=== PATIENT | female | born 1980 | race Caucasian/White ===

== ENCOUNTER 2017-06-25 01:13 | Emergency (ER) | payer MEDICARE, MEDICAID ==
[~2017-06-25] VITALS: Ht 165.1 cm; Wt 100.0 kg
[~2017-06-25 01:13] MED LIST: ARIP5TAB4 PO; DOXE10CA2 PO; FLUO20CA39 PO; FLUT16SP10; IBUP-1984 PO; PANT20TA3 PO
[2017-06-25 01:41] LABS: CLARITY,URINE CLEAR (Clear); COLOR,URINE YELLOW (Yellow); GLUCOSE, URINE NEGATIVE (Neg); KETONES,URINE NEGATIVE (Neg); LEUKOCYTE ESTERASE ,URINE NEGATIVE (Neg); NITRITES, URINE NEGATIVE (Neg); OCCULT BLOOD,URINE NEGATIVE (Neg); PH,URINE 6.5 (4.8-8.0); PROTEIN,URINE NEGATIVE (Neg); URINE HCG NEGATIVE (NEG); UROBILINOGEN,URINE 0.2 E.U/dL (0.2-1.0)
[2017-06-25 01:42] LABS: UA COLLECTION TYPE FOLEY CATH
[2017-06-25] MEDS ORDERED: normal saline 1000ML IV soln IVB ONE (02:00)
[2017-06-25] MEDS ORDERED: ketorolac trometh. 30mg/ml inj. IV ONE (02:10)
[2017-06-25 02:11] LABS: BASOPHILS # (AUTO) 0.1 X10'3 (0-0.2); BASOPHILS % (AUTO) 0.9 % (0-1); EOSINOPHILS # (AUTO) 0.3 X10'3 (0-0.9); EOSINOPHILS % (AUTO) 3.7 % (0-6); HEMATOCRIT 39.8 % (35.0-45.0); HEMOGLOBIN 13.4 g/dl (12.0-16.0); LYMPHOCYTES # (AUTO) 2.8 X10'3 (1.1-4.8); LYMPHOCYTES % (AUTO) 36.1 % (21-51); MEAN CORPUSCULAR HEMOGLOBIN 28.6 PG (27.0-31.0); MEAN CORPUSCULAR HGB CONC 33.8 % (33.0-36.5); MEAN CORPUSCULAR VOLUME 84.7 FL (78-98); MEAN PLATELET VOLUME 8.4 FL (7.4-10.4); MONOCYTES # (AUTO) 0.7 X10'3 (0-0.9); MONOCYTES % (AUTO) 9.6 % (2-12); NEUTROPHILS # (AUTO) 3.8 X10'3 (1.8-7.7); NEUTROPHILS % (AUTO) 49.7 % (42-75); PLATELET COUNT 264 X10'3 (140-440); RED CELL DISTRIBUTION WIDTH 13.7 % (11.5-14.5); WHITE BLOOD COUNT 7.7 X10'3 (4.5-11.0)
[2017-06-25] MEDS ORDERED: acetaminophen 325mg tablet PO ONE (02:15)
[2017-06-25 02:19] LABS: ALBUMIN 3.6 G/DL (3.4-5.0); ANION GAP 7 (8-16); CALCIUM 8.9 MG/DL (8.5-10.1); CHLORIDE 104 MMOL/L (99-107); CREATININE 0.92 MG/DL (0.40-0.90); GLUCOSE 101 MG/DL (70-104); POTASSIUM 3.6 MMOL/L (3.5-5.1); SODIUM 141 MMOL/L (135-145); TOTAL CARBON DIOXIDE 30.3 MMOL/L (24-32); eGFR 68 ML/MIN
[2017-06-25 02:40] LABS: BLOOD UREA NITROGEN 15 MG/DL (7-18); BUN/CREATININE RATIO 16.3 (6.6-38.0)
[2017-06-25] MEDS ORDERED: iohexol 300mg/ml 100ml inj. ONE (03:35)
[2017-06-25 05:31] VITALS: BP 120/72
== END 2017-06-25 05:33 | disposition home or self-care (01) ==
LOC: ER 01:14
DX: K59.00 Constipation, unspecified (principal); R33.9 Retention of urine, unspecified; N18.9 Chronic kidney disease, unspecified; K21.9 Gastro-esophageal reflux disease without esophagitis; Z88.6 Allergy status to analgesic agent; Z88.1 Allergy status to other antibiotic agents; Z88.0 Allergy status to penicillin; Z88.8 Allergy status to other drugs, medicaments and biological substances
CPT/HCPCS: 36415; 51702; 74177; 76856; 80048; 81003; 81025; 85025; 96360; 99285; A4315; J7030; Q9967; A4353

== ENCOUNTER 2017-08-12 18:27 | Emergency (ER) | payer MEDICARE, MEDICAID ==
[~2017-08-12] VITALS: Ht 165.1 cm; Wt 104.5 kg
[~2017-08-12 18:27] MED LIST changes: -IBUP-1984 PO
[2017-08-12] MEDS ORDERED: LORazepam 2 mg/ml vial IV ONE (21:10)
[2017-08-12] MEDS ORDERED: iohexol 300mg/ml 100ml inj. ONE (21:18)
[2017-08-12 22:09] LABS: BASOPHILS # (AUTO) 0.1 X10'3 (0-0.2); BASOPHILS % (AUTO) 0.5 % (0-1); EOSINOPHILS # (AUTO) 0.4 X10'3 (0-0.9); EOSINOPHILS % (AUTO) 3.4 % (0-6); HEMOGLOBIN 12.6 g/dl (12.0-16.0); LYMPHOCYTES % (AUTO) 26.6 % (21-51); MEAN CORPUSCULAR VOLUME 85.6 FL (78-98); MEAN PLATELET VOLUME 8.1 FL (7.4-10.4); MONOCYTES # (AUTO) 0.8 X10'3 (0-0.9); MONOCYTES % (AUTO) 7.4 % (2-12); NEUTROPHILS % (AUTO) 62.1 % (42-75); PLATELET COUNT 278 X10'3 (140-440); RED BLOOD COUNT 4.21 X10'6 (4.20-5.60); RED CELL DISTRIBUTION WIDTH 14.3 % (11.5-14.5); WHITE BLOOD COUNT 11.2 X10'3 (4.5-11.0)
[2017-08-12] MEDS ORDERED: AZIT-63 PO (22:27)
[2017-08-12] MEDS ORDERED: DIAZ5TAB PO (22:27)
[2017-08-12 22:35] VITALS: BP 143/85
[2017-08-12 22:37] LABS: ALANINE AMINOTRANSFERASE 37 U/L (12-78); ALBUMIN 3.4 G/DL (3.4-5.0); ALBUMIN/GLOBULIN RATIO 0.9 (1.1-1.5); ALKALINE PHOSPHATASE 69 IU/L (46-116); ANION GAP 9 (8-16); ASPARTATE AMINO TRANSFERASE 24 U/L (10-37); BILIRUBIN,TOTAL 0.2 MG/DL (0.1-1.0); BLOOD UREA NITROGEN 14 MG/DL (7-18); BUN/CREATININE RATIO 16.5 (6.6-38.0); CALCIUM 8.4 MG/DL (8.5-10.1); CHLORIDE 103 MMOL/L (99-107); CREATININE 0.85 MG/DL (0.40-0.90); GLUCOSE 90 MG/DL (70-104); SODIUM 139 MMOL/L (135-145); TOTAL CARBON DIOXIDE 26.6 MMOL/L (24-32); TOTAL PROTEIN 7.1 G/DL (6.4-8.2); eGFR 75 ML/MIN
[2017-08-12 22:45] LABS: POTASSIUM 3.7 MMOL/L (3.5-5.1)
== END 2017-08-12 22:37 | disposition home or self-care (01) ==
LOC: ER 18:28
DX: J32.9 Chronic sinusitis, unspecified (principal); F41.9 Anxiety disorder, unspecified; R42 Dizziness and giddiness; K21.9 Gastro-esophageal reflux disease without esophagitis; Z98.890 Other specified postprocedural states; Z88.0 Allergy status to penicillin; Z88.2 Allergy status to sulfonamides; Z88.5 Allergy status to narcotic agent; Z88.8 Allergy status to other drugs, medicaments and biological substances; Z79.899 Other long term (current) drug therapy
CPT/HCPCS: 36415; 70450; 70491; 80053; 85025; 96374; 99285; J2060; J7030; Q9967

== ENCOUNTER 2017-08-19 17:30 | Emergency (ER) | payer MEDICARE, MEDICAID ==
[~2017-08-19] VITALS: Ht 165.1 cm; Wt 107.1 kg
[~2017-08-19 17:30] MED LIST changes: +AZIT-63 PO; +DIAZ5TAB PO
[2017-08-19] MEDS ORDERED: HYDR-3965 PO (20:09)
[2017-08-19] MEDS ORDERED: MECL12.584 PO (20:09)
[2017-08-19] MEDS ORDERED: ONDA8TAB9 PO (20:09)
[2017-08-19] MEDS ORDERED: acetaminophen 325mg tablet PO ONE (20:10)
[2017-08-19 20:24] VITALS: BP 134/76
== END 2017-08-19 20:36 | disposition home or self-care (01) ==
LOC: ER 17:32
DX: J32.9 Chronic sinusitis, unspecified (principal); H53.9 Unspecified visual disturbance; K21.9 Gastro-esophageal reflux disease without esophagitis; Z98.890 Other specified postprocedural states; Z88.0 Allergy status to penicillin; Z88.2 Allergy status to sulfonamides; Z88.8 Allergy status to other drugs, medicaments and biological substances; Z79.899 Other long term (current) drug therapy
CPT/HCPCS: 99283

== ENCOUNTER 2017-09-02 19:14 | Emergency (ER) | payer MEDICARE, MEDICAID ==
[~2017-09-02] VITALS: Ht 165.1 cm; Wt 105.0 kg
[~2017-09-02 19:14] MED LIST changes: +HYDR-3965 PO; +MECL12.584 PO; +ONDA8TAB9 PO
[2017-09-02 19:32] VITALS: BP 127/81
[2017-09-02] MEDS ORDERED: HYDR-565 PO (19:35)
[2017-09-02] MEDS ORDERED: CLIN-80 PO (19:35)
== END 2017-09-02 19:55 | disposition home or self-care (01) ==
LOC: ER 19:15
DX: K08.89 Other specified disorders of teeth and supporting structures (principal); K21.9 Gastro-esophageal reflux disease without esophagitis; Z98.890 Other specified postprocedural states; Z88.0 Allergy status to penicillin; Z88.2 Allergy status to sulfonamides; Z79.899 Other long term (current) drug therapy
CPT/HCPCS: 99283

== ENCOUNTER 2017-10-19 20:44 | Emergency (ER) | payer MEDICARE, MEDICAID ==
[~2017-10-19] VITALS: Ht 165.1 cm; Wt 106.4 kg
[~2017-10-19 20:44] MED LIST changes: -AZIT-63 PO; +CLIN300C85 PO; -HYDR-3965 PO; +HYDR-565 PO
[2017-10-19] MEDS ORDERED: proCHLORperazine 10 MG/2 ml inj IM ONE (21:20)
[2017-10-19] MEDS ORDERED: PHE25R PR (21:49)
== END 2017-10-19 21:58 | disposition home or self-care (01) ==
LOC: ER 20:45
DX: K08.89 Other specified disorders of teeth and supporting structures (principal); K21.9 Gastro-esophageal reflux disease without esophagitis; R11.0 Nausea; Z98.890 Other specified postprocedural states; Z88.0 Allergy status to penicillin; Z88.1 Allergy status to other antibiotic agents; Z88.2 Allergy status to sulfonamides; Z88.8 Allergy status to other drugs, medicaments and biological substances; Z88.5 Allergy status to narcotic agent; Z79.2 Long term (current) use of antibiotics; Z79.899 Other long term (current) drug therapy
CPT/HCPCS: 96372; 99283; J0780

== ENCOUNTER 2018-03-06 14:44 | Emergency (ER) | payer MEDICARE, MEDICAID ==
[~2018-03-06] VITALS: Ht 165.1 cm; Wt 106.0 kg
[~2018-03-06 14:44] MED LIST changes: -HYDR-565 PO; +PHE25R PR
[2018-03-06] MEDS ORDERED: ondansetron/PF 4mg/2ml inj IV ONE (15:25)
[2018-03-06] MEDS ORDERED: normal saline 1000ML IV soln IVB ONE (15:25)
[2018-03-06] MEDS: fentaNYL/PF 50MCG/1 ML 2ML syringe IV ONE ×2 (15:56→16:05)
[2018-03-06 16:01] VITALS: BP 142/91
[2018-03-06 16:10] LABS: BASOPHILS # (AUTO) 0.1 X10'3 (0-0.2); BASOPHILS % (AUTO) 0.5 % (0-1); EOSINOPHILS # (AUTO) 0.3 X10'3 (0-0.9); EOSINOPHILS % (AUTO) 3.5 % (0-6); HEMATOCRIT 38.8 % (35.0-45.0); HEMOGLOBIN 12.9 g/dl (12.0-16.0); LYMPHOCYTES # (AUTO) 2.9 X10'3 (1.1-4.8); LYMPHOCYTES % (AUTO) 30.9 % (21-51); MEAN CORPUSCULAR HEMOGLOBIN 29.1 PG (27.0-31.0); MEAN CORPUSCULAR HGB CONC 33.2 % (33.0-36.5); MEAN CORPUSCULAR VOLUME 87.8 FL (78-98); MONOCYTES # (AUTO) 0.7 X10'3 (0-0.9); NEUTROPHILS # (AUTO) 5.3 X10'3 (1.8-7.7); NEUTROPHILS % (AUTO) 57.1 % (42-75); PLATELET COUNT 346 X10'3 (140-440); RED BLOOD COUNT 4.42 X10'6 (4.20-5.60); RED CELL DISTRIBUTION WIDTH 13.3 % (11.5-14.5); WHITE BLOOD COUNT 9.3 X10'3 (4.5-11.0)
[2018-03-06 16:16] LABS: CLARITY,URINE CLEAR (Clear); COLOR,URINE YELLOW (Yellow); GLUCOSE, URINE NEGATIVE (Neg); KETONES,URINE TRACE mg/dl (Neg); LEUKOCYTE ESTERASE ,URINE NEGATIVE (Neg); NITRITES, URINE NEGATIVE (Neg); OCCULT BLOOD,URINE NEGATIVE (Neg); PH,URINE 6.5 (4.8-8.0); PROTEIN,URINE NEGATIVE (Neg); UA COLLECTION TYPE CLN CATCH MIDSTREAM; UROBILINOGEN,URINE 0.2 E.U/dL (0.2-1.0)
[2018-03-06 16:25] LABS: GLUCOSE 88 MG/DL (70-104)
[2018-03-06 16:26] LABS: ALANINE AMINOTRANSFERASE 47 U/L (12-78); ALBUMIN 3.2 G/DL (3.4-5.0); ALBUMIN/GLOBULIN RATIO 0.8 (1.1-1.5); ALKALINE PHOSPHATASE 77 IU/L (46-116); ANION GAP 8 (8-16); ASPARTATE AMINO TRANSFERASE 27 U/L (10-37); BILIRUBIN,TOTAL 0.1 MG/DL (0.1-1.0); BLOOD UREA NITROGEN 16 MG/DL (7-18); BUN/CREATININE RATIO 17.6 (6.6-38.0); CALCIUM 8.6 MG/DL (8.5-10.1); CHLORIDE 104 MMOL/L (99-107); CREATININE 0.91 MG/DL (0.40-0.90); POTASSIUM 3.5 MMOL/L (3.5-5.1); SODIUM 141 MMOL/L (135-145); TOTAL CARBON DIOXIDE 28.7 MMOL/L (24-32); TOTAL PROTEIN 7.1 G/DL (6.4-8.2); eGFR 69 ML/MIN
== END 2018-03-06 17:08 | disposition home or self-care (01) ==
LOC: ER 14:44
DX: R42 Dizziness and giddiness (principal); K21.9 Gastro-esophageal reflux disease without esophagitis; Z98.890 Other specified postprocedural states; Z90.89 Acquired absence of other organs; Z88.0 Allergy status to penicillin; Z88.1 Allergy status to other antibiotic agents; Z88.2 Allergy status to sulfonamides; Z88.6 Allergy status to analgesic agent; Z79.899 Other long term (current) drug therapy
CPT/HCPCS: 36415; 70450; 71045; 80053; 81003; 85025; 96361; 96374; 99285; J2405; J3010; J7030

== ENCOUNTER 2018-03-16 23:46 | Emergency (ER) | payer MEDICARE, MEDICAID ==
[~2018-03-16] VITALS: Ht 165.1 cm; Wt 106.8 kg
[2018-03-17] MEDS ORDERED: ACET1TAB12 PO (00:11)
[2018-03-17] MEDS ORDERED: ONDA4TAB9 SL (00:11)
[2018-03-17] MEDS ORDERED: HYDROmorphone 1 mg/ml syringe IM ONE (00:15)
[2018-03-17] MEDS ORDERED: ondansetron 4mg rapidly disintigrating tab PO ONE (00:15)
[2018-03-17 00:31] VITALS: BP 169/105
== END 2018-03-17 00:35 | disposition home or self-care (01) ==
LOC: ER 23:47
DX: J01.90 Acute sinusitis, unspecified (principal); K21.9 Gastro-esophageal reflux disease without esophagitis; Z88.0 Allergy status to penicillin; Z88.1 Allergy status to other antibiotic agents; Z88.2 Allergy status to sulfonamides; Z88.6 Allergy status to analgesic agent; Z79.899 Other long term (current) drug therapy; Z98.890 Other specified postprocedural states; Z90.89 Acquired absence of other organs
CPT/HCPCS: 96372; 99283; J1170

== ENCOUNTER → 2018-03-29 | Emergency (ER) | payer MEDICARE, MEDICAID ==
[~2018-03-29] VITALS: Ht 165.1 cm; Wt 105.0 kg
[~2018-03-29] MED LIST changes: +ACET1TAB12 PO; +ONDA4TAB6 PO
[2018-03-29 16:51] VITALS: BP 153/89
== END | disposition home or self-care (01) ==
LOC: ER 16:42
DX: R51 Headache (principal); K21.9 Gastro-esophageal reflux disease without esophagitis; Z98.890 Other specified postprocedural states; Z88.0 Allergy status to penicillin; Z88.2 Allergy status to sulfonamides; Z88.1 Allergy status to other antibiotic agents; Z88.5 Allergy status to narcotic agent; Z88.8 Allergy status to other drugs, medicaments and biological substances; Z79.2 Long term (current) use of antibiotics; Z79.899 Other long term (current) drug therapy
CPT/HCPCS: 99284

== ENCOUNTER 2018-05-11 21:54 | Emergency (ER) | payer MEDICARE, MEDICAID ==
[~2018-05-11] VITALS: Ht 165.1 cm; Wt 92.6 kg
[2018-05-11] MEDS ORDERED: HYDROcodone/acetaminophen 10/325mg tab PO ONE (22:15)
[2018-05-11] MEDS ORDERED: MECL-111 PO (22:15)
[2018-05-11] MEDS ORDERED: ketorolac trometh. 30mg/ml inj. IV ONE (22:15)
[2018-05-11] MEDS ORDERED: meclizine 12.5mg tablet PO ONE (22:15)
[2018-05-11] MEDS ORDERED: HYDR-3965 PO (22:15)
[2018-05-11] MEDS ORDERED: ondansetron 4mg rapidly disintigrating tab PO ONE (22:20)
[2018-05-11 22:50] VITALS: BP 166/111
== END 2018-05-11 22:52 | disposition home or self-care (01) ==
LOC: ER 21:55
DX: R51 Headache (principal); R11.0 Nausea; K21.9 Gastro-esophageal reflux disease without esophagitis; Z98.890 Other specified postprocedural states; Z88.0 Allergy status to penicillin; Z88.2 Allergy status to sulfonamides; Z88.1 Allergy status to other antibiotic agents; Z88.5 Allergy status to narcotic agent; Z88.8 Allergy status to other drugs, medicaments and biological substances; Z79.2 Long term (current) use of antibiotics; Z79.899 Other long term (current) drug therapy
CPT/HCPCS: 99284; J8597

== ENCOUNTER 2018-05-30 15:58 | Emergency (ER) | payer MEDICARE, MEDICAID ==
[~2018-05-30] VITALS: Ht 165.1 cm; Wt 105.2 kg
[~2018-05-30 15:58] MED LIST changes: +HYDR-3965 PO; +MECL-111 PO
[2018-05-30] MEDS ORDERED: methylPREDNISolone sod succ 125mg/2ml vial IV ONE (17:20)
[2018-05-30 18:06] LABS: ALANINE AMINOTRANSFERASE 28 U/L (12-78); ALBUMIN 3.2 G/DL (3.4-5.0); ALBUMIN/GLOBULIN RATIO 0.8 (1.1-1.5); ALKALINE PHOSPHATASE 77 IU/L (46-116); ANION GAP 9 (8-16); ASPARTATE AMINO TRANSFERASE 19 U/L (10-37); BILIRUBIN,TOTAL 0.3 MG/DL (0.1-1.0); BLOOD UREA NITROGEN 13 MG/DL (7-18); BUN/CREATININE RATIO 17.3 (6.6-38.0); CALCIUM 8.4 MG/DL (8.5-10.1); CHLORIDE 102 MMOL/L (99-107); CREATININE 0.75 MG/DL (0.40-0.90); GLUCOSE 101 MG/DL (70-104); POTASSIUM 3.8 MMOL/L (3.5-5.1); SODIUM 139 MMOL/L (135-145); TOTAL CARBON DIOXIDE 28.4 MMOL/L (24-32); TOTAL PROTEIN 7.4 G/DL (6.4-8.2); eGFR 86 ML/MIN
[2018-05-30 18:09] LABS: BASOPHILS % (AUTO) 0.3 % (0-1); EOSINOPHILS # (AUTO) 0.2 X10'3 (0-0.9); EOSINOPHILS % (AUTO) 2.3 % (0-6); HEMATOCRIT 39.4 % (35.0-45.0); HEMOGLOBIN 13.2 g/dl (12.0-16.0); LYMPHOCYTES # (AUTO) 2.3 X10'3 (1.1-4.8); LYMPHOCYTES % (AUTO) 24.8 % (21-51); MEAN CORPUSCULAR HEMOGLOBIN 29.3 PG (27.0-31.0); MEAN CORPUSCULAR HGB CONC 33.5 % (33.0-36.5); MEAN CORPUSCULAR VOLUME 87.4 FL (78-98); MEAN PLATELET VOLUME 8.4 FL (7.4-10.4); MONOCYTES # (AUTO) 0.6 X10'3 (0-0.9); MONOCYTES % (AUTO) 6.4 % (2-12); NEUTROPHILS # (AUTO) 6.2 X10'3 (1.8-7.7); NEUTROPHILS % (AUTO) 66.2 % (42-75); PLATELET COUNT 296 X10'3 (140-440); RED CELL DISTRIBUTION WIDTH 14.7 % (11.5-14.5); WHITE BLOOD COUNT 9.4 X10'3 (4.5-11.0)
[2018-05-30 18:19] LABS: D-DIMER 0.32 MG/L FEU (0-0.50)
[2018-05-30] MEDS ORDERED: LORazepam 0.5 MG tablet PO PRN (18:55)
[2018-05-30] MEDS ORDERED: LORA0.5T PO (19:39)
[2018-05-30 19:48] VITALS: BP 154/90
== END 2018-05-30 19:59 | disposition home or self-care (01) ==
LOC: ER 15:59
DX: R06.02 Shortness of breath (principal); F41.9 Anxiety disorder, unspecified; K21.9 Gastro-esophageal reflux disease without esophagitis; Z98.890 Other specified postprocedural states; Z90.89 Acquired absence of other organs; Z88.0 Allergy status to penicillin; Z88.1 Allergy status to other antibiotic agents; Z88.5 Allergy status to narcotic agent; Z88.6 Allergy status to analgesic agent; Z79.899 Other long term (current) drug therapy
CPT/HCPCS: 36415; 71045; 80053; 84439; 84443; 85025; 85379; 93005; 96374; 99284; J2930

== ENCOUNTER 2018-06-24 13:44 | Outpatient (CLI) | payer MEDICARE, MEDICAID ==
[~2018-06-24 13:44] MED LIST changes: -HYDR-3965 PO
[2018-06-24] MEDS ORDERED: SIMETHICONE/SOD BICARB/CIT AC PACKET PO ONE (14:58)
== END 2018-06-24 23:59 | disposition home or self-care (01) ==
LOC: RAD 13:44
PROVIDERS: ATTEND Otolaryngology
DX: R13.14 Dysphagia, pharyngoesophageal phase (principal); K21.9 Gastro-esophageal reflux disease without esophagitis; Z88.0 Allergy status to penicillin; Z88.2 Allergy status to sulfonamides; Z88.5 Allergy status to narcotic agent
CPT/HCPCS: 74220; 74230

== ENCOUNTER 2019-03-15 16:23 | Emergency (ER) | payer MEDICAID ==
[~2019-03-15] VITALS: Ht 165.1 cm; Wt 110.0 kg
[~2019-03-15 16:23] MED LIST changes: +ARIP5TAB14 PO; -ARIP5TAB4 PO; +CLIN-90 PO; -CLIN300C85 PO; +LOPE2CAP PO; +LORA1TAB PO; +PREG150C PO
[2019-03-15 16:28] VITALS: BP 150/101
[2019-03-15] MEDS ORDERED: ALBU6.7H9 INH (17:07)
[2019-03-15] MEDS ORDERED: CEPH250T PO (17:07)
[2019-03-15] MEDS ORDERED: PRED20TA PO (17:07)
== END 2019-03-15 17:46 | disposition home or self-care (01) ==
LOC: MERGE 16:24 → ER 16:24
DX: J20.9 Acute bronchitis, unspecified (principal); F41.9 Anxiety disorder, unspecified; Z88.0 Allergy status to penicillin; Z88.2 Allergy status to sulfonamides; Z88.1 Allergy status to other antibiotic agents; Z88.5 Allergy status to narcotic agent; Z79.899 Other long term (current) drug therapy
CPT/HCPCS: 99283

== ENCOUNTER 2019-03-21 08:34 | Emergency (ER) | payer MEDICAID ==
[~2019-03-21] VITALS: Ht 165.1 cm; Wt 109.0 kg
[~2019-03-21 08:34] MED LIST changes: +ALBU6.7H9 INH; +CEPH250T PO; +PRED20TA PO
[2019-03-21] MEDS ORDERED: normal saline 1000ML IV soln IV ONE (08:45)
[2019-03-21] MEDS ORDERED: benzonatate 100mg capsule PO ONE (08:50)
[2019-03-21] MEDS ORDERED: acetaminophen 325mg tablet PO ONE ×2 (08:50)
[2019-03-21 09:26] LABS: CLARITY,URINE CLEAR (Clear); COLOR,URINE YELLOW (Yellow); GLUCOSE, URINE NEGATIVE (Neg); KETONES,URINE NEGATIVE (Neg); LEUKOCYTE ESTERASE ,URINE NEGATIVE (Neg); NITRITES, URINE NEGATIVE (Neg); OCCULT BLOOD,URINE NEGATIVE (Neg); PROTEIN,URINE NEGATIVE (Neg); UROBILINOGEN,URINE 0.2 E.U/dL (0.2-1.0)
[2019-03-21 09:28] LABS: UA COLLECTION TYPE CLN CATCH MIDSTREAM
[2019-03-21 09:30] LABS: URINE HCG NEGATIVE (NEG)
[2019-03-21 09:33] LABS: BASOPHILS # (AUTO) 0.1 X10'3 (0-0.2); BASOPHILS % (AUTO) 0.9 % (0-1); EOSINOPHILS # (AUTO) 0.2 X10'3 (0-0.9); HEMATOCRIT 39.3 % (35.0-45.0); HEMOGLOBIN 13.4 g/dl (12.0-16.0); LYMPHOCYTES # (AUTO) 2.8 X10'3 (1.1-4.8); LYMPHOCYTES % (AUTO) 33.4 % (21-51); MEAN CORPUSCULAR HEMOGLOBIN 29.4 PG (27.0-31.0); MEAN CORPUSCULAR HGB CONC 34.1 g/dL (33.0-36.5); MEAN CORPUSCULAR VOLUME 86.1 FL (78-98); MEAN PLATELET VOLUME 7.7 FL (7.4-10.4); MONOCYTES # (AUTO) 0.7 X10'3 (0-0.9); MONOCYTES % (AUTO) 8.2 % (2-12); NEUTROPHILS # (AUTO) 4.6 X10'3 (1.8-7.7); NEUTROPHILS % (AUTO) 55.5 % (42-75); PLATELET COUNT 311 X10'3 (140-440); RED BLOOD COUNT 4.56 X10'6 (4.20-5.60); RED CELL DISTRIBUTION WIDTH 14.2 % (11.5-14.5); WHITE BLOOD COUNT 8.3 X10'3 (4.5-11.0)
[2019-03-21 09:48] LABS: ALANINE AMINOTRANSFERASE 39 U/L (12-78); ALBUMIN 3.6 G/DL (3.4-5.0); ALKALINE PHOSPHATASE 79 IU/L (46-116); ANION GAP 10 (8-16); ASPARTATE AMINO TRANSFERASE 24 U/L (10-37); BILIRUBIN,TOTAL 0.3 MG/DL (0.1-1.0); BLOOD UREA NITROGEN 12 MG/DL (7-18); BUN/CREATININE RATIO 14.6 (6.6-38.0); CALCIUM 8.6 MG/DL (8.5-10.1); CHLORIDE 104 MMOL/L (99-107); CREATININE 0.82 MG/DL (0.40-0.90); GLUCOSE 95 MG/DL (70-104); POTASSIUM 3.3 MMOL/L (3.5-5.1); SODIUM 141 MMOL/L (135-145); TOTAL PROTEIN 7.3 G/DL (6.4-8.2); eGFR 77 ML/MIN
[2019-03-21] MEDS ORDERED: BENZ-38 PO (09:52)
[2019-03-21 10:36] VITALS: BP 137/87
== END 2019-03-21 10:39 | disposition home or self-care (01) ==
LOC: ER 08:35
DX: J06.9 Acute upper respiratory infection, unspecified (principal); K21.9 Gastro-esophageal reflux disease without esophagitis; Z98.890 Other specified postprocedural states; Z90.89 Acquired absence of other organs; Z88.0 Allergy status to penicillin; Z88.1 Allergy status to other antibiotic agents; Z88.2 Allergy status to sulfonamides; Z79.899 Other long term (current) drug therapy
CPT/HCPCS: 36415; 71046; 80053; 81003; 81025; 83605; 83735; 83880; 84145; 85025; 87040; 93005; 99284; J7030

== ENCOUNTER 2019-06-16 19:04 | Emergency (ER) | payer MEDICARE, MEDICAID ==
[~2019-06-16] VITALS: Ht 165.1 cm; Wt 109.1 kg
[~2019-06-16 19:04] MED LIST changes: -CEPH250T PO; -MECL-111 PO; +MECL-159 PO; +MECL-183 PO; -MECL12.584 PO; -PRED20TA PO
[2019-06-16] MEDS ORDERED: CLIN-142 PO (20:48)
[2019-06-16] MEDS ORDERED: HYDR-4383 PO (20:48)
[2019-06-16 20:52] VITALS: BP 150/88
== END 2019-06-16 21:06 | disposition home or self-care (01) ==
LOC: ER 19:05
DX: S02.5XXA Fracture of tooth (traumatic), initial encounter for closed fracture (principal); K21.9 Gastro-esophageal reflux disease without esophagitis; Z98.890 Other specified postprocedural states; Z90.89 Acquired absence of other organs; Z88.0 Allergy status to penicillin; Z88.1 Allergy status to other antibiotic agents; Z88.2 Allergy status to sulfonamides; Z88.5 Allergy status to narcotic agent; Z88.6 Allergy status to analgesic agent; X58.XXXA Exposure to other specified factors, initial encounter; Y93.89 Activity, other specified; Y92.89 Other specified places as the place of occurrence of the external cause; Y99.9 Unspecified external cause status
CPT/HCPCS: 99283

== ENCOUNTER 2020-01-06 21:04 | Emergency (ER) | payer MEDICARE, MEDICAID ==
[~2020-01-06] VITALS: Ht 165.1 cm; Wt 107.0 kg
[~2020-01-06 21:04] MED LIST changes: -CLIN-90 PO; +CLIN-97 PO; +HYDR-4383 PO
[2020-01-06] MEDS ORDERED: ondansetron/PF 4mg/2ml inj IV ONE (22:20)
[2020-01-06] MEDS ORDERED: famotidine/PF 10 mg/ml inj IV ONE (22:20)
[2020-01-06] MEDS ORDERED: fentaNYL/PF 50MCG/1 ML 2ML syringe IV ONE (22:20)
[2020-01-06] MEDS ORDERED: normal saline 1000ml 1,000 ML IV ONE (22:20)
[2020-01-06 22:26] LABS: BASOPHILS # (AUTO) 0.1 X10'3 (0-0.2); BASOPHILS % (AUTO) 0.8 % (0-1); EOSINOPHILS # (AUTO) 0.2 X10'3 (0-0.9); EOSINOPHILS % (AUTO) 1.9 % (0-6); HEMATOCRIT 40.2 % (35.0-45.0); HEMOGLOBIN 13.5 g/dl (12.0-16.0); LYMPHOCYTES # (AUTO) 3.3 X10'3 (1.1-4.8); LYMPHOCYTES % (AUTO) 28.9 % (21-51); MEAN CORPUSCULAR HEMOGLOBIN 29.8 PG (27.0-31.0); MEAN CORPUSCULAR HGB CONC 33.6 g/dL (33.0-36.5); MEAN CORPUSCULAR VOLUME 88.8 FL (78-98); MEAN PLATELET VOLUME 8.1 FL (7.4-10.4); MONOCYTES # (AUTO) 0.9 X10'3 (0-0.9); MONOCYTES % (AUTO) 8.2 % (2-12); NEUTROPHILS % (AUTO) 60.2 % (42-75); PLATELET COUNT 293 X10'3 (140-440); RED BLOOD COUNT 4.52 X10'6 (4.20-5.60); RED CELL DISTRIBUTION WIDTH 13.4 % (11.5-14.5); WHITE BLOOD COUNT 11.6 X10'3 (4.5-11.0)
[2020-01-06 22:35] LABS: ALANINE AMINOTRANSFERASE 26 U/L (12-78); ALBUMIN 3.5 G/DL (3.4-5.0); ALBUMIN/GLOBULIN RATIO 0.9 (1.1-1.5); ALKALINE PHOSPHATASE 73 IU/L (46-116); ANION GAP 9 (8-16); ASPARTATE AMINO TRANSFERASE 19 U/L (10-37); BILIRUBIN,TOTAL 0.4 MG/DL (0.1-1.0); BLOOD UREA NITROGEN 9 MG/DL (7-18); BUN/CREATININE RATIO 10.1 (6.6-38.0); CALCIUM 8.5 MG/DL (8.5-10.1); CHLORIDE 102 MMOL/L (99-107); CREATININE 0.89 MG/DL (0.40-0.90); GLUCOSE 84 MG/DL (70-104); LIPASE 108 U/L (73-393); POTASSIUM 3.7 MMOL/L (3.5-5.1); SODIUM 137 MMOL/L (135-145); TOTAL CARBON DIOXIDE 25.6 MMOL/L (24-32); TOTAL PROTEIN 7.4 G/DL (6.4-8.2); eGFR 70 ML/MIN
[2020-01-06] MEDS ORDERED: LIDOcaine Viscous 15ml cup MM ONE (23:05)
[2020-01-06] MEDS ORDERED: mag hydrox/Alum hydrox/simeth 30ml oral suspension PO ONE (23:05)
[2020-01-06 23:17] LABS: URINE HCG NEGATIVE (NEG)
[2020-01-06 23:18] LABS: CLARITY,URINE CLEAR (Clear); COLOR,URINE YELLOW (Yellow); GLUCOSE, URINE NEGATIVE (Neg); KETONES,URINE NEGATIVE (Neg); LEUKOCYTE ESTERASE ,URINE NEGATIVE (Neg); NITRITES, URINE NEGATIVE (Neg); OCCULT BLOOD,URINE NEGATIVE (Neg); PROTEIN,URINE NEGATIVE (Neg); UROBILINOGEN,URINE 0.2 E.U/dL (0.2-1.0)
[2020-01-06 23:25] LABS: UA COLLECTION TYPE CLN CATCH MIDSTREAM
[2020-01-06] MEDS ORDERED: FAMO-128 PO (23:42)
[2020-01-06 23:59] VITALS: BP 166/89
== END 2020-01-07 01:23 | disposition home or self-care (01) ==
LOC: ER 21:05
DX: K29.70 Gastritis, unspecified, without bleeding (principal); R10.11 Right upper quadrant pain; R11.2 Nausea with vomiting, unspecified; K21.9 Gastro-esophageal reflux disease without esophagitis; F41.9 Anxiety disorder, unspecified; Z90.89 Acquired absence of other organs; Z98.890 Other specified postprocedural states; Z88.0 Allergy status to penicillin; Z88.2 Allergy status to sulfonamides; Z79.2 Long term (current) use of antibiotics; Z88.8 Allergy status to other drugs, medicaments and biological substances; Z79.899 Other long term (current) drug therapy
CPT/HCPCS: 36415; 76700; 80053; 81003; 81025; 83690; 85025; 96361; 96374; 96375; 99284; J2405; J3010; J3490; J7030

== ENCOUNTER 2020-02-18 15:55 | Emergency (ER) | payer MEDICARE, MEDICAID ==
[~2020-02-18] VITALS: Ht 165.1 cm; Wt 106.8 kg
[~2020-02-18 15:55] MED LIST changes: +FAMO-128 PO; +PANT20TA18 PO; -PANT20TA3 PO
[2020-02-18] MEDS ORDERED: fentaNYL/PF 50MCG/1 ML 2ML syringe IV ONE (17:15)
[2020-02-18] MEDS ORDERED: ondansetron 4mg rapidly disintigrating tab PO ONE (17:15)
[2020-02-18] MEDS ORDERED: normal saline 1000ML IV soln IVB ONE (17:15)
[2020-02-18 18:01] LABS: BASOPHILS # (AUTO) 0.1 X10'3 (0-0.2); BASOPHILS % (AUTO) 0.8 % (0-1); EOSINOPHILS # (AUTO) 0.3 X10'3 (0-0.9); EOSINOPHILS % (AUTO) 2.5 % (0-6); HEMATOCRIT 40.9 % (35.0-45.0); HEMOGLOBIN 13.7 g/dl (12.0-16.0); LYMPHOCYTES # (AUTO) 2.6 X10'3 (1.1-4.8); LYMPHOCYTES % (AUTO) 24.7 % (21-51); MEAN CORPUSCULAR HEMOGLOBIN 29.4 PG (27.0-31.0); MEAN CORPUSCULAR HGB CONC 33.5 g/dL (33.0-36.5); MEAN CORPUSCULAR VOLUME 87.8 FL (78-98); MEAN PLATELET VOLUME 8.3 FL (7.4-10.4); MONOCYTES # (AUTO) 0.9 X10'3 (0-0.9); MONOCYTES % (AUTO) 8.5 % (2-12); NEUTROPHILS # (AUTO) 6.6 X10'3 (1.8-7.7); NEUTROPHILS % (AUTO) 63.5 % (42-75); PLATELET COUNT 329 X10'3 (140-440); RED BLOOD COUNT 4.65 X10'6 (4.20-5.60); RED CELL DISTRIBUTION WIDTH 13.5 % (11.5-14.5); WHITE BLOOD COUNT 10.4 X10'3 (4.5-11.0)
[2020-02-18 18:20] LABS: ALANINE AMINOTRANSFERASE 33 U/L (12-78); ALBUMIN 3.7 G/DL (3.4-5.0); ALBUMIN/GLOBULIN RATIO 0.9 (1.1-1.5); ALKALINE PHOSPHATASE 78 IU/L (46-116); ANION GAP 6 (8-16); ASPARTATE AMINO TRANSFERASE 19 U/L (10-37); BILIRUBIN,TOTAL 0.3 MG/DL (0.1-1.0); BLOOD UREA NITROGEN 13 MG/DL (7-18); BUN/CREATININE RATIO 15.7 (6.6-38.0); CALCIUM 8.8 MG/DL (8.5-10.1); CHLORIDE 105 MMOL/L (99-107); CREATININE 0.83 MG/DL (0.40-0.90); GLUCOSE 92 MG/DL (70-104); LIPASE 162 U/L (73-393); POTASSIUM 3.5 MMOL/L (3.5-5.1); SODIUM 141 MMOL/L (135-145); TOTAL PROTEIN 7.8 G/DL (6.4-8.2); eGFR 76 ML/MIN
[2020-02-18] MEDS ORDERED: iohexol 300mg/ml 100ml inj. ONE (18:21)
[2020-02-18] MEDS ORDERED: famotidine/PF 10 mg/ml inj IV ONE (19:30)
[2020-02-18] MEDS ORDERED: TRAM50TA2 PO (19:31)
[2020-02-18 19:54] VITALS: BP 158/100
== END 2020-02-18 19:57 | disposition home or self-care (01) ==
LOC: ER 15:56
DX: R10.13 Epigastric pain (principal); K21.9 Gastro-esophageal reflux disease without esophagitis; F41.9 Anxiety disorder, unspecified; Z90.89 Acquired absence of other organs; Z90.49 Acquired absence of other specified parts of digestive tract; Z98.890 Other specified postprocedural states; Z88.0 Allergy status to penicillin; Z88.2 Allergy status to sulfonamides; Z79.2 Long term (current) use of antibiotics; Z79.899 Other long term (current) drug therapy
CPT/HCPCS: 36415; 71045; 71260; 80053; 83690; 85025; 96361; 96374; 96375; 99285; J3010; J3490; J7030; Q9967

== ENCOUNTER 2020-11-14 06:07 | Day surgery (SDC) | payer BC, MEDICAID ==
[2020-11-08 15:22] LABS: BASOPHILS # (AUTO) 0.1 X10'3 (0-0.2); BASOPHILS % (AUTO) 0.4 % (0-1); EOSINOPHILS # (AUTO) 0.1 X10'3 (0-0.9); EOSINOPHILS % (AUTO) 0.8 % (0-6); LYMPHOCYTES # (AUTO) 3.6 X10'3 (1.1-4.8); LYMPHOCYTES % (AUTO) 22.6 % (21-51); MEAN CORPUSCULAR HEMOGLOBIN 29.1 PG (27.0-31.0); MEAN CORPUSCULAR HGB CONC 33.9 g/dL (33.0-36.5); MEAN CORPUSCULAR VOLUME 85.8 FL (78-98); MEAN PLATELET VOLUME 7.8 FL (7.4-10.4); MONOCYTES # (AUTO) 1.5 X10'3 (0-0.9); MONOCYTES % (AUTO) 9.6 % (2-12); NEUTROPHILS # (AUTO) 10.5 X10'3 (1.8-7.7); NEUTROPHILS % (AUTO) 66.6 % (42-75); PRE OP HEMATOCRIT 39.8 % (35.0-45.0); PRE OP HEMOGLOBIN 13.5 g/dL (12.0-16.0); PRE OP PLATELET COUNT 369 X10'3 (140-440); RED BLOOD COUNT 4.64 X10'6 (4.20-5.60); RED CELL DISTRIBUTION WIDTH 14.7 % (11.5-14.5)
[2020-11-08 15:29] LABS: PRE OP PROTIME 10.3 SECONDS (9.0-12.0)
[2020-11-08 15:31] LABS: ALBUMIN 3.5 G/DL (3.4-5.0); ALBUMIN/GLOBULIN RATIO 0.9 (1.1-1.5); ALKALINE PHOSPHATASE 73 IU/L (46-116); BLOOD UREA NITROGEN 17 MG/DL (7-18); CALCIUM 8.8 MG/DL (8.5-10.1); CHLORIDE 102 MMOL/L (99-107); PRE OP ALT 24 U/L (30-65); PRE OP ANION GAP 8 (8-16); PRE OP AST 16 U/L (10-37); PRE OP BILIRUB, TOTAL 0.3 MG/DL (0.0-1.0); PRE OP GLUCOSE 76 MG/DL (70-104); PRE OP POTASSIUM 3.6 MMOL/L (3.4-5.1); PRE OP SODIUM 140 MMOL/L (135-145); TOTAL CARBON DIOXIDE 29.9 MMOL/L (24-32); TOTAL PROTEIN 7.5 G/DL (6.4-8.2); eGFR 61 ML/MIN
[2020-11-08 15:35] LABS: HCG SERUM QL NEGATIVE
[2020-11-14] VITALS (10 sets, daily range): BP systolic 143–154; BP diastolic 78–95
[~2020-11-14] VITALS: Ht 165.1 cm; Wt 106.6 kg
[~2020-11-14 06:07] MED LIST changes: -ACET1TAB12 PO; -ALBU6.7H9 INH; -ARIP5TAB14 PO; +ATOR10TA70 PO; +AZEL137S4 BOTHNARES; +BREX2TAB PO; +CEPH250C PO; -CLIN-97 PO; +CLON0.1T2 PO; -DIAZ5TAB PO; +DOCUMENT DATE & TIME OF BETA-BLOCKER PO ONE; -DOXE10CA2 PO; +DOXE25CA3 PO; +DUPI300S; -FAMO-128 PO; -FLUO20CA39 PO; +FLUO40CA PO; -HYDR-4383 PO; +LEVO500T89 PO; -LOPE2CAP PO; -LORA1TAB PO; +LORA2TAB96; -MECL-159 PO; -MECL-183 PO; +OMEP-50 PO; -ONDA4TAB6 PO; +ONDA8TAB13 PO; -ONDA8TAB9 PO; -PHE25R PR; +POLY510P31 PO; +PRED10TA; +PROP20TA6 PO; +diazepam 5mg tablet PO ONE; +famotidine 20mg tablet PO ONE; +ringers solution, lacted 1,000 ML IV SCH
[2020-11-14] MEDS ORDERED: oxymetazoline 15 ML nasal spray NS ONE ×2 (06:15→06:58)
[2020-11-14] MEDS ORDERED: cocaine 4% topical solution 4ml bottle ONE (06:56)
[2020-11-14] MEDS ORDERED: LIDOcaine 1% 30ml preserv. free vial ONE (06:57)
[2020-11-14] MEDS ORDERED: methylPREDNISolone acetate 80mg/ml inj**IM only ONE (06:57)
[2020-11-14] MEDS ORDERED: bacitracin 15gm ointment TP ONE (06:57)
[2020-11-14] MEDS ORDERED: cefTAZidime 1gm inj ONE (06:58)
[2020-11-14] MEDS ORDERED: LIDOcaine 1% W/epiNEPHrine 1:100,000 20ml vial ONE (07:14)
[2020-11-14] MEDS: oxymetazoline 15 ML nasal spray NS ONE ×2 (07:26→09:08)
[2020-11-14] MEDS ORDERED: glycopyrrolate 0.2mg/ml inj ONE (07:53)
[2020-11-14] MEDS ORDERED: sevoflurane 250ml liquid IH ONE (07:53)
[2020-11-14] MEDS ORDERED: neostigmine methylsulfate 1 MG/ML 10ml vial ONE (07:53)
[2020-11-14] MEDS ORDERED: dexamethasone sod phosphate 10mg/ml inj ONE (07:53)
[2020-11-14] MEDS ORDERED: LIDOcaine 1% (10mg/ml) 2ml vial ONE (08:02)
[2020-11-14] MEDS ORDERED: midazolam 1 mg/ML 2ml injection ONE (08:08)
[2020-11-14] MEDS ORDERED: fentaNYL /PF 50mcg/ml 5ml ampule ONE (08:09)
[2020-11-14] MEDS ORDERED: propofol inj 20 ML IV ONE (08:22)
[2020-11-14] MEDS ORDERED: LIDOcaine 2% (20mg/ml) 5ml vial ONE (08:22)
[2020-11-14] MEDS ORDERED: metoprolol tartrate 1mg/ml inj IV ONE (08:22)
[2020-11-14] MEDS ORDERED: ondansetron/PF 4mg/2ml inj ONE (08:25)
[2020-11-14] MEDS ORDERED: rocuronium 10mg/ml inj IV ONE (08:25)
[2020-11-14] MEDS ORDERED: ondansetron/PF 4mg/2ml inj IV PRN (08:55)
[2020-11-14] MEDS ORDERED: ringers solution, lacted 1,000 ML IV SCH (08:55)
[2020-11-14] MEDS ORDERED: meperidine/PF 25mg/ml syringe IV PRN ×3 (08:55)
[2020-11-14] MEDS ORDERED: proCHLORperazine 10 MG/2 ml inj IV PRN (08:55)
[2020-11-14] MEDS ORDERED: fentaNYL/PF 50MCG/1 ML 2ML syringe ONE (10:20)
--- NOTE | 2020-11-14 10:20 | NUR ---
ADMITTED TO PACU FROM OR ACCOMPANIED BY ANESTHESIA. INTIAL PHYSICAL ASSESSMENT DONE AND RECORDED. REPORT RECEIVED FROM ANESTHESIA.
[2020-11-14] MEDS ORDERED: salt irrigation nasal spray 45 ML SPRAY NS PRN (10:40)
--- NOTE | 2020-11-14 10:40 | NUR ---
PT AWAKE AND STATES SHE IS IN EXCRUCIATING PAIN, DEMEROL ORDERED REFUSED INSISTS ON #1 FENTANYL, #[address] MOREIRA NOTIFIED ORDER FOR FENTANYL GIVEN, FENTANYL OVERRIDDEN 100MCG GIVEN IN 2 50MCG DOSES 5 MIN APART. TYLENOL IV ORDERED PT REFUSED. SURGICALLY STABLE.
[2020-11-14] MEDS ORDERED: acetaminophen 1,000mg/100ml IV 100 ML IV ONE (10:55)
--- NOTE | 2020-11-14 11:00 | NUR ---
PT STATES FENTANYL NOT WORKING, WANTS MORE MEDICATION. IV TYLENOL ORDERED BY ANESTHESIA. PT REFUSES IV TYLENOL STATING THAT IT DOESN'T WORK. THAT SHE IS IN TOO MUCH PAIN TO GO HOME DR. RASMUSSEN CALLED IN OR ADVISED ON CURRENT SITUATION NO NEED TO ADMIT TO HOSPITAL. PT TOLD OF DR. RASMUSSEN DECISION, STATES SHE IS NOT GOING HOME SHE WANTS TO BE ADMITTED TO HOSPITAL. 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
--- NOTE | 2020-11-14 11:10 | NUR ---
NOTED THAT KEIRA
--- NOTE | 2020-11-14 11:10 | NUR ---
NOTED THAT PATIENT HAS PO VALIUM ORDERED, VALIUM OFFERED BUT REFUSED. REINFORCED POSITIVE EFFECTS OF TAKING VALIUM, PT CONCEDES. VALIUM 5MG TAKEN PO. DRINKING 7UP WITHOUT NAUSEA.
--- NOTE | 2020-11-14 11:15 | NUR ---
PT CONTINUES TO INSIST ON NEED FOR MORE PAIN MEDS, VSS. CALLED FOR DISCHARGE. PT REFUSED SALINE NASAL RINSE. REVIEWED DISCHARGE INSTRUCTIONS. PT STATES WHEN SHE IS DISCHARGED THAT SHE WILL HAVE HER TAKE HER TO ER TO BE ADMITTED.
--- NOTE | 2020-11-14 11:30 | NUR ---
PACU DISCHARGE CRITERIA MET, REPORT GIVEN TO FLOOR. DENIES PAIN OR DISCOMFORT. PT IS STABLE AND ADEQUATELY RECOVERED FROM ANESTHESIA. PT HAS STABLE AIRWAY PATENCY, RESPIRATORY FUNCTION TO INCLUDE RESPIRATORY RATE AND O2 SAT. HEART RATE, BLOOD PRESSURE STABLE AND HYDRATION ADEQUATE. MENTAL STATUS IS APPROPRIATE. PAIN AND NAUSEA CONTROLLED. REFER TO PACU SPREADSHEET FOR VITAL SIGNS. DISCHARGE CRITERIA MET, DISCHARGE INSTRUCTIONS GIVEN. DISCHARGED HOME IN STABLE CONDITION.
== END 2020-11-14 11:35 | disposition home or self-care (01) ==
LOC: PAS 06:07
PROVIDERS: ATTEND Otolaryngology
DX: J32.8 Other chronic sinusitis (principal); J33.8 Other polyp of sinus; I10 Essential (primary) hypertension; F32.9 Major depressive disorder, single episode, unspecified; F41.9 Anxiety disorder, unspecified; K21.9 Gastro-esophageal reflux disease without esophagitis; M19.90 Unspecified osteoarthritis, unspecified site; F43.10 Post-traumatic stress disorder, unspecified; E66.9 Obesity, unspecified; Z68.39 Body mass index [BMI] 39.0-39.9, adult; Z79.899 Other long term (current) drug therapy; Z79.01 Long term (current) use of anticoagulants; Z98.890 Other specified postprocedural states; Z88.0 Allergy status to penicillin; Z88.2 Allergy status to sulfonamides; Z88.5 Allergy status to narcotic agent; Z87.891 Personal history of nicotine dependence
CPT/HCPCS: 31253; 31259; 31267; 36415; 61782; 80053; 82948; 84703; 85025; 85576; 85610; 85730; 87070; 87075; 93005; A6402; C9250; J0713; J1040; J1100; J2001; J2250; J2405; J2704; J2710; J3010; J7040; J7120; A4618; A7000; J3490

== ENCOUNTER 2020-11-14 11:43 | Emergency (ER) | payer BC, MEDICAID ==
[~2020-11-14] VITALS: Ht 165.1 cm; Wt 125.0 kg
[~2020-11-14 11:43] MED LIST changes: -DOCUMENT DATE & TIME OF BETA-BLOCKER PO ONE; -diazepam 5mg tablet PO ONE; -famotidine 20mg tablet PO ONE; -ringers solution, lacted 1,000 ML IV SCH
[2020-11-14 12:15] VITALS: BP 175/102
[2020-11-14] MEDS ORDERED: oxyCODONE/APAP 10/325mg tablet PO ONE (12:25)
--- NOTE | 2020-11-14 13:32 | NUR ---
Pt refused to sign DC paperwork after edmd Raya explained there is no reason for admission. Dressing was changed. 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 YOSELYN Israel contacted [employer]. Pt put in lobby awaiting [employer].
--- NOTE | 2020-11-14 13:46 | NUR ---
SS WITH PATIENT & FAMILY
== END 2020-11-14 14:20 | disposition home or self-care (01) ==
LOC: ER 11:44
DX: G89.18 Other acute postprocedural pain (principal); J33.8 Other polyp of sinus; K21.9 Gastro-esophageal reflux disease without esophagitis; F41.9 Anxiety disorder, unspecified; Z98.890 Other specified postprocedural states; Z90.89 Acquired absence of other organs; Z88.0 Allergy status to penicillin; Z88.2 Allergy status to sulfonamides; Z88.1 Allergy status to other antibiotic agents; Z88.8 Allergy status to other drugs, medicaments and biological substances; Z88.5 Allergy status to narcotic agent; Z79.2 Long term (current) use of antibiotics; Z79.899 Other long term (current) drug therapy
CPT/HCPCS: 88304; 88311; 99283

== ENCOUNTER 2020-12-11 06:44 | Emergency (ER) | payer BC, MEDICAID ==
[~2020-12-11] VITALS: Ht 165.1 cm; Wt 106.8 kg
[~2020-12-11 06:44] MED LIST changes: -DUPI300S
[2020-12-11] MEDS ORDERED: ondansetron/PF 4mg/2ml inj IV ONE (09:30)
[2020-12-11] MEDS ORDERED: proCHLORperazine 10 MG/2 ml inj IV ONE (10:15)
[2020-12-11] MEDS ORDERED: oxyCODONE/APAP 10/325mg tablet PO ONE (10:15)
[2020-12-11] MEDS ORDERED: normal saline 1000ml 1,000 ML IV ONE ×2 (10:15→10:25)
[2020-12-11] MEDS ORDERED: acetaminophen 325mg tablet PO ONE (10:15)
[2020-12-11] MEDS ORDERED: iohexol 300mg/ml 100ml inj. ONE (10:28)
[2020-12-11 10:38] VITALS: BP 157/109
[2020-12-11] MEDS ORDERED: ONDA4TAB6 PO (11:58)
[2020-12-11] MEDS ORDERED: PROC-8 PO (11:58)
[2020-12-11] MEDS ORDERED: PER5325T PO (11:58)
== END 2020-12-11 12:42 | disposition home or self-care (01) ==
LOC: ER 06:45
DX: R11.2 Nausea with vomiting, unspecified (principal); J32.9 Chronic sinusitis, unspecified; K21.9 Gastro-esophageal reflux disease without esophagitis; Z88.0 Allergy status to penicillin; Z88.1 Allergy status to other antibiotic agents; Z88.2 Allergy status to sulfonamides; Z88.5 Allergy status to narcotic agent; Z88.4 Allergy status to anesthetic agent; Z79.899 Other long term (current) drug therapy
CPT/HCPCS: 70487; 96361; 96374; 96375; 99285; J0780; J2405; J7030; Q9967

== ENCOUNTER 2021-12-07 09:12 | Emergency (ER) | payer BC, MEDICAID ==
[~2021-12-07] VITALS: Ht 165.1 cm; Wt 109.1 kg
[~2021-12-07 09:12] MED LIST changes: -LEVO500T89 PO; +LEVO500T90 PO; -OMEP-50 PO; +OMEP20CA16 PO; +ONDA4TAB6 PO; +PROC-8 PO
[2021-12-07 09:18] VITALS: BP 155/97
[2021-12-07 10:10] LABS: CLARITY,URINE CLOUDY (Clear); COLOR,URINE YELLOW (Yellow); GLUCOSE, URINE NEGATIVE (Neg); KETONES,URINE NEGATIVE (Neg); LEUKOCYTE ESTERASE ,URINE TRACE (Neg); NITRITES, URINE NEGATIVE (Neg); OCCULT BLOOD,URINE NEGATIVE (Neg); PROTEIN,URINE NEGATIVE (Neg); UROBILINOGEN,URINE 0.2 E.U/dL (0.2-1.0)
[2021-12-07 10:20] LABS: MUCUS STRANDS MANY /LPF (Neg); SQUAMOUS EPITHELIAL CELL,UR MANY /LPF (FEW); UA COLLECTION TYPE CLN CATCH MIDSTREAM
[2021-12-07 10:21] LABS: BACTERIA,URINE 1+ /HPF (Neg); RBC,URINE 0-2 /HPF (0-2)
[2021-12-07 10:22] LABS: WBC CLUMPS,URINE MANY /HPF (NEGATIVE)
[2021-12-07] MEDS ORDERED: CEPH-585 PO (10:44)
[2021-12-07] MEDS ORDERED: PHEN-716 PO (10:44)
== END 2021-12-07 11:07 | disposition home or self-care (01) ==
LOC: ER 09:14
DX: N39.0 Urinary tract infection, site not specified (principal); K21.9 Gastro-esophageal reflux disease without esophagitis; Z88.0 Allergy status to penicillin; Z88.1 Allergy status to other antibiotic agents; Z88.2 Allergy status to sulfonamides
CPT/HCPCS: 81001; 99283

== ENCOUNTER 2022-09-25 18:26 | Emergency (ER) | payer MEDICARE, MEDICAID ==
[~2022-09-25] VITALS: Ht 165.1 cm; Wt 118.2 kg
[~2022-09-25 18:26] MED LIST changes: +CEPH-585 PO; +LEVO-65 PO; -LEVO500T90 PO; +PHEN-716 PO
[2022-09-25 18:36] VITALS: BP 149/101
[2022-09-25 19:26] LABS: MONOTEST NEGATIVE (Neg)
[2022-09-25] MEDS ORDERED: ALBU8HFA PO (21:08)
== END 2022-09-25 21:19 | disposition home or self-care (01) ==
LOC: ER 18:27
DX: J04.0 Acute laryngitis (principal); Z20.822 Contact with and (suspected) exposure to COVID-19; J06.9 Acute upper respiratory infection, unspecified; K21.9 Gastro-esophageal reflux disease without esophagitis; F41.9 Anxiety disorder, unspecified; Z88.0 Allergy status to penicillin; Z88.1 Allergy status to other antibiotic agents; Z88.2 Allergy status to sulfonamides; Z79.899 Other long term (current) drug therapy; Z88.5 Allergy status to narcotic agent
CPT/HCPCS: 36415; 71045; 84484; 86308; 87081; 87811; 87880; 99283; 99284

== ENCOUNTER 2023-02-08 12:35 | Emergency (ER) | payer MEDICARE, MEDICAID ==
[~2023-02-08] VITALS: Ht 165.1 cm; Wt 113.6 kg
[~2023-02-08 12:35] MED LIST changes: -CEPH-585 PO
--- NOTE | 2023-02-08 13:47 | NUR ---
PT REPORTS TO THE ER WITH RIGHT ARM PAIN R/T FALLING IN SHOWER THIS MORNING. PT STATES PAIN 8/10 PAIN. PT REPORTS TINGLING IN FINGERS.
[2023-02-08 16:04] VITALS: BP 131/97; PULSE 69; RESP 18; TEMP 97.9; O2SAT 99
--- NOTE | 2023-02-08 17:54 | NUR ---
i AGREE WITH THE ASSESSMENT PER Javier LLANES LVN
== END 2023-02-08 17:53 | disposition home or self-care (01) ==
LOC: ER 12:36
DX: M25.531 Pain in right wrist (principal); M25.521 Pain in right elbow; Z98.891 History of uterine scar from previous surgery; Z98.890 Other specified postprocedural states; Z88.0 Allergy status to penicillin; Z88.1 Allergy status to other antibiotic agents; Z88.2 Allergy status to sulfonamides; Z88.8 Allergy status to other drugs, medicaments and biological substances; Z79.899 Other long term (current) drug therapy; Z79.2 Long term (current) use of antibiotics; W18.2XXA Fall in (into) shower or empty bathtub, initial encounter; Z91.81 History of falling; Y93.89 Activity, other specified; Y92.89 Other specified places as the place of occurrence of the external cause; Y99.8 Other external cause status
CPT/HCPCS: 29125; 73080; 73090; 73110; 99284; A6449

== ENCOUNTER 2024-02-07 16:31 | Emergency (ER) | payer MEDICARE, MEDICAID ==
[~2024-02-07] VITALS: Ht 165.1 cm; Wt 110.0 kg
[~2024-02-07 16:31] MED LIST changes: +ONDA-245 PO; -ONDA8TAB13 PO
[2024-02-07 16:55] VITALS: BP 139/83; PULSE 82; RESP 16; TEMP 98.3; O2SAT 97
[2024-02-07] MEDS ORDERED: CLIN300C71 PO (17:14)
== END 2024-02-07 17:25 | disposition home or self-care (01) ==
LOC: ER 16:32
DX: K04.7 Periapical abscess without sinus (principal); K08.89 Other specified disorders of teeth and supporting structures; K21.9 Gastro-esophageal reflux disease without esophagitis; F41.9 Anxiety disorder, unspecified; Z88.0 Allergy status to penicillin; Z88.1 Allergy status to other antibiotic agents; Z88.2 Allergy status to sulfonamides; Z88.5 Allergy status to narcotic agent; Z88.8 Allergy status to other drugs, medicaments and biological substances; Z79.899 Other long term (current) drug therapy; Z98.890 Other specified postprocedural states; Z90.89 Acquired absence of other organs
CPT/HCPCS: 99283

== ENCOUNTER 2024-02-20 13:58 | Emergency (ER) | payer MEDICARE, MEDICAID ==
[~2024-02-20] VITALS: Ht 165.1 cm; Wt 109.0 kg
[2024-02-20 15:30] LABS: BASOPHILS % (AUTO) 0.3 % (0-1); EOSINOPHILS # (AUTO) 0.1 X10'3 (0-0.9); EOSINOPHILS % (AUTO) 1.5 % (0-6); HEMOGLOBIN 12.9 g/dl (12.0-16.0); LYMPHOCYTES # (AUTO) 1.9 X10'3 (1.1-4.8); LYMPHOCYTES % (AUTO) 19.2 % (21-51); MEAN CORPUSCULAR HEMOGLOBIN 29.4 PG (27.0-31.0); MEAN CORPUSCULAR HGB CONC 33.2 g/dL (33.0-36.5); MEAN CORPUSCULAR VOLUME 88.6 FL (78-98); MONOCYTES # (AUTO) 0.6 X10'3 (0-0.9); MONOCYTES % (AUTO) 5.6 % (2-12); NEUTROPHILS # (AUTO) 7.4 X10'3 (1.8-7.7); NEUTROPHILS % (AUTO) 73.4 % (42-75); PLATELET COUNT 305 X10'3 (140-440); RED CELL DISTRIBUTION WIDTH 13.9 % (11.5-14.5); WHITE BLOOD COUNT 10.1 X10'3 (4.5-11.0)
[2024-02-20 15:40] LABS: ALBUMIN 3.2 G/DL (3.4-5.0); ANION GAP 5 (8-16); BLOOD UREA NITROGEN 13 MG/DL (7-18); BUN/CREATININE RATIO 14.8 (10.0-20.0); CALCIUM 8.5 MG/DL (8.5-10.1); CHLORIDE 102 MMOL/L (99-107); CREATININE 0.88 MG/DL (0.40-0.90); GLUCOSE 114 MG/DL (70-104); POTASSIUM 3.9 MMOL/L (3.5-5.1); SODIUM 137 MMOL/L (135-145); TOTAL CARBON DIOXIDE 30.1 MMOL/L (24-32); eCRCL 73 ML/MIN; eGFR 70 ML/MIN
[2024-02-20 16:05] VITALS: BP 153/104; PULSE 82; RESP 17; TEMP 98.3; O2SAT 99
== END 2024-02-20 16:07 | disposition home or self-care (01) ==
LOC: ER 13:58
DX: R42 Dizziness and giddiness (principal); K08.89 Other specified disorders of teeth and supporting structures; I95.1 Orthostatic hypotension; K21.9 Gastro-esophageal reflux disease without esophagitis; F41.9 Anxiety disorder, unspecified; Z88.0 Allergy status to penicillin; Z88.1 Allergy status to other antibiotic agents; Z88.2 Allergy status to sulfonamides; Z79.52 Long term (current) use of systemic steroids; Z79.899 Other long term (current) drug therapy; Z98.890 Other specified postprocedural states
CPT/HCPCS: 36415; 80048; 85025; 99283

== ENCOUNTER 2024-04-21 16:37 | Emergency (ER) | payer MEDICARE, MEDICAID ==
[~2024-04-21] VITALS: Ht 172.7 cm; Wt 98.3 kg
[2024-04-21 16:57] VITALS: TEMP 97.8
[2024-04-21 19:08] LABS: BASOPHILS # (AUTO) 0.1 X10'3 (0-0.2); BASOPHILS % (AUTO) 0.6 % (0-1); EOSINOPHILS # (AUTO) 0.2 X10'3 (0-0.9); EOSINOPHILS % (AUTO) 1.9 % (0-6); HEMATOCRIT 37.6 % (35.0-45.0); LYMPHOCYTES # (AUTO) 2.6 X10'3 (1.1-4.8); LYMPHOCYTES % (AUTO) 29.3 % (21-51); MEAN CORPUSCULAR HEMOGLOBIN 30.5 PG (27.0-31.0); MEAN CORPUSCULAR HGB CONC 34.5 g/dL (33.0-36.5); MEAN CORPUSCULAR VOLUME 88.3 FL (78-98); MEAN PLATELET VOLUME 7.9 FL (7.4-10.4); MONOCYTES # (AUTO) 0.8 X10'3 (0-0.9); MONOCYTES % (AUTO) 9.1 % (2-12); NEUTROPHILS # (AUTO) 5.2 X10'3 (1.8-7.7); NEUTROPHILS % (AUTO) 59.1 % (42-75); PLATELET COUNT 301 X10'3 (140-440); RED BLOOD COUNT 4.26 X10'6 (4.20-5.60); RED CELL DISTRIBUTION WIDTH 13.4 % (11.5-14.5); WHITE BLOOD COUNT 8.8 X10'3 (4.5-11.0)
[2024-04-21 19:21] LABS: ALANINE AMINOTRANSFERASE 36 U/L (12-78); ALBUMIN 3.7 G/DL (3.4-5.0); ALBUMIN/GLOBULIN RATIO 1.1 (1.1-1.5); ALKALINE PHOSPHATASE 70 IU/L (46-116); ANION GAP 8 (8-16); ASPARTATE AMINO TRANSFERASE 32 U/L (10-37); BILIRUBIN,TOTAL 0.5 MG/DL (0.1-1.0); BLOOD UREA NITROGEN 14 MG/DL (7-18); BUN/CREATININE RATIO 12.7 (10.0-20.0); CALCIUM 8.4 MG/DL (8.5-10.1); CHLORIDE 107 MMOL/L (99-107); GLUCOSE 120 MG/DL (70-104); SODIUM 143 MMOL/L (135-145); TOTAL CARBON DIOXIDE 28.5 MMOL/L (24-32); TOTAL PROTEIN 7.2 G/DL (6.4-8.2); eCRCL 65 ML/MIN; eGFR 54 ML/MIN
[2024-04-21] MEDS: acetaminophen 325mg tablet PO ONE (19:41)
[2024-04-21] MEDS: fentaNYL/PF 50MCG/1 ML 2ML syringe IV ONE (19:41)
[2024-04-21] MEDS: orphenadrine citrate 60mg/2ml inj. IM ONE (19:53)
[2024-04-21 20:03] LABS: POTASSIUM 2.9 MMOL/L (3.5-5.1)
[2024-04-21 20:27] VITALS: BP 138/87; PULSE 79; RESP 16; O2SAT 98
[2024-04-21] MEDS: potassium Cl 20 mEq SR tablet PO STA (20:35)
== END 2024-04-21 20:41 | disposition home or self-care (01) ==
LOC: ER 16:38
DX: M54.50 Low back pain, unspecified (principal); K21.9 Gastro-esophageal reflux disease without esophagitis; F41.9 Anxiety disorder, unspecified; Z88.0 Allergy status to penicillin; Z88.2 Allergy status to sulfonamides; Z88.5 Allergy status to narcotic agent; Z88.1 Allergy status to other antibiotic agents; Z88.8 Allergy status to other drugs, medicaments and biological substances; Z98.890 Other specified postprocedural states; Z90.89 Acquired absence of other organs; W19.XXXA Unspecified fall, initial encounter; Y93.89 Activity, other specified; Y92.89 Other specified places as the place of occurrence of the external cause; Y99.8 Other external cause status
CPT/HCPCS: 36415; 72131; 80053; 85025; 96374; 99285; J3010

== ENCOUNTER 2024-07-24 21:21 | Emergency (ER) | payer MEDICARE, MEDICAID ==
[~2024-07-24] VITALS: Ht 165.1 cm; Wt 105.6 kg
[2024-07-24 23:10] LABS: BASOPHILS % (AUTO) 0.5 % (0-1); EOSINOPHILS # (AUTO) 0.2 X10'3 (0-0.9); HEMATOCRIT 40.5 % (35.0-45.0); HEMOGLOBIN 13.6 g/dl (12.0-16.0); LYMPHOCYTES # (AUTO) 2.7 X10'3 (1.1-4.8); LYMPHOCYTES % (AUTO) 28.1 % (21-51); MEAN CORPUSCULAR HEMOGLOBIN 29.5 PG (27.0-31.0); MEAN CORPUSCULAR HGB CONC 33.6 g/dL (33.0-36.5); MEAN CORPUSCULAR VOLUME 87.8 FL (78-98); MEAN PLATELET VOLUME 8.6 FL (7.4-10.4); MONOCYTES # (AUTO) 0.9 X10'3 (0-0.9); MONOCYTES % (AUTO) 8.9 % (2-12); NEUTROPHILS # (AUTO) 5.9 X10'3 (1.8-7.7); NEUTROPHILS % (AUTO) 60.5 % (42-75); PLATELET COUNT 313 X10'3 (140-440); RED BLOOD COUNT 4.62 X10'6 (4.20-5.60); RED CELL DISTRIBUTION WIDTH 14.1 % (11.5-14.5); WHITE BLOOD COUNT 9.8 X10'3 (4.5-11.0)
[2024-07-24 23:36] LABS: ALANINE AMINOTRANSFERASE 45 U/L (12-78); ALBUMIN 3.7 G/DL (3.4-5.0); ALBUMIN/GLOBULIN RATIO 0.9 (1.1-1.5); ALKALINE PHOSPHATASE 82 IU/L (46-116); ANION GAP 9 (8-16); ASPARTATE AMINO TRANSFERASE 26 U/L (10-37); BILIRUBIN,TOTAL 0.3 MG/DL (0.1-1.0); BLOOD UREA NITROGEN 6 MG/DL (7-18); BUN/CREATININE RATIO 8.1 (10.0-20.0); CALCIUM 8.7 MG/DL (8.5-10.1); CHLORIDE 104 MMOL/L (99-107); CREATININE 0.74 MG/DL (0.40-0.90); GLUCOSE 84 MG/DL (70-104); LIPASE 30 U/L (16-77); POTASSIUM 3.3 MMOL/L (3.5-5.1); SODIUM 141 MMOL/L (135-145); TOTAL CARBON DIOXIDE 28.1 MMOL/L (24-32); TOTAL PROTEIN 7.9 G/DL (6.4-8.2); eCRCL 86 ML/MIN; eGFR 85 ML/MIN
[2024-07-25 00:06] VITALS: PULSE 93
[2024-07-25 00:33] LABS: URINE HCG NEGATIVE (NEG)
[2024-07-25 00:38] LABS: BILIRUBIN,URINE NEGATIVE (Neg); CLARITY,URINE CLEAR (Clear); COLOR,URINE YELLOW (Yellow); GLUCOSE, URINE NEGATIVE (Neg); KETONES,URINE NEGATIVE (Neg); LEUKOCYTE ESTERASE ,URINE NEGATIVE (Neg); NITRITES, URINE NEGATIVE (Neg); OCCULT BLOOD,URINE NEGATIVE (Neg); PROTEIN,URINE NEGATIVE (Neg); UROBILINOGEN,URINE 0.2 E.U/dL (0.2-1.0)
[2024-07-25 00:46] LABS: UA COLLECTION TYPE CLN CATCH MIDSTREAM
[2024-07-25] MEDS ORDERED: PROC-8 PO (03:50)
[2024-07-25] MEDS ORDERED: DICY20TA17 PO (03:50)
[2024-07-25 04:03] VITALS: BP 141/92; RESP 16; TEMP 98.2; O2SAT 97
== END 2024-07-25 04:05 | disposition home or self-care (01) ==
LOC: ER 21:22
DX: R10.13 Epigastric pain (principal); R11.2 Nausea with vomiting, unspecified; K21.9 Gastro-esophageal reflux disease without esophagitis; F41.9 Anxiety disorder, unspecified; Z88.0 Allergy status to penicillin; Z88.1 Allergy status to other antibiotic agents; Z88.2 Allergy status to sulfonamides; Z88.5 Allergy status to narcotic agent; Z98.890 Other specified postprocedural states; Z88.8 Allergy status to other drugs, medicaments and biological substances; Z79.899 Other long term (current) drug therapy
CPT/HCPCS: 36415; 80053; 81003; 81025; 83690; 85025; 99283

== ENCOUNTER 2024-09-14 17:55 | Emergency (ER) | payer MEDICARE, MEDICAID ==
[~2024-09-14] VITALS: Ht 165.1 cm; Wt 104.8 kg
[~2024-09-14 17:55] MED LIST changes: +DICY20TA17 PO
--- NOTE | 2024-09-14 18:26 | Physician Documentation ---
History of Present Illness Chief Complaint: Abdominal Pain Stated Complaint: ABD PAIN Primary Medical Doctor: Dr. Percy AYALA This 44-year-old female with history of ovarian cyst presents with generalized abdominal pain and feeling of acid reflux, patient reports three days ago pain began in her left lower quadrant and spread to tire lower abdomen than over the past day her entire abdomen began hurting and she had �acid reflux�. Patient reports no vomiting or diarrhea. Patient reports no fever. Reports compliance with her Protonix for her abdominal pain. Medication Reconciliation Allergies: Coded Allergies: Penicillins (Verified Allergy, Severe, ANAPHALAXIS, 09/14/24) ciprofloxacin (Verified Allergy, Mild, RASH, 09/14/24) Sulfa (Sulfonamide Antibiotics) (Verified Allergy, Unknown, RASH, 09/14/24) azithromycin (Verified Allergy, Unknown, RASH, 09/14/24) PT STATES TAKEN Z-PACK WITH NO REACTION BUT UNABLE TO TAKE ALLERGY OFF. codeine (Verified Allergy, Unknown, 09/14/24) ketorolac (Verified Allergy, Unknown, INVOLUNTARY MOVEMENT, 09/14/24) morphine (Verified Allergy, Unknown, HALLUCINATIONS AND VOMITTING, 02/08/23) ketorolac tromethamine (Verified Adverse Reaction, Unknown, Seizures, 02/08/23) Scheduled Atorvastatin Calcium (Atorvastatin Calcium), 1 TAB PO DAILY, (Reported) Azelastine HCl (Azelastine HCl), 2 SPRAYS BOTHNARES BID, (Reported) Brexpiprazole (Rexulti), 1 TAB PO DAILY, (Reported) Clonidine HCl (Clonidine HCl), 1 TAB PO TID, (Reported) Dicyclomine HCl (Dicyclomine HCl), 1 TAB PO Q12H Doxepin HCl (Doxepin HCl), 1 CAP PO HS, (Reported) Fluoxetine Hcl (Fluoxetine Hcl), 1 CAP PO DAILY, (Reported) Fluticasone Propionate (Flonase), DAILY, (Reported) Levofloxacin (Levofloxacin), 1 TAB PO DAILY, (Reported) Omeprazole (Omeprazole), 1 CAP PO BID, (Reported) Ondansetron Hcl (Zofran), 1-2 TAB PO Q6H Pantoprazole Sodium (Protonix), 2 TAB PO DAILY, (Reported) Phenazopyridine HCl (Pyridium), 1 TAB PO Q8H Pregabalin (Lyrica), 1 CAP PO BID, (Reported) Prochlorperazine Maleate (Compazine), 1 TAB PO Q6H Prochlorperazine Maleate (Compazine), 1 TAB PO Q6H Scheduled PRN Ondansetron 8mg ODT (Ondansetron Odt), 1 TAB PO BID PRN for nausea, (Reported) Polyethylene Glycol 3350 (Amm4649), 17 PKT PO DAILY PRN for diarrhea, (Reported) Propranolol Hcl (Propranolol Hcl), 1 TAB PO BID PRN for PAIN/HTN, (Reported) Miscellaneous Medications Cephalexin (Cephalexin), 1 CAP PO, (Reported) Lorazepam (Ativan), (Reported) Prednisone (Prednisone), (Reported) Past Medical History 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 Medical History: *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*, *ENT*, Sinusitis, Bowel Obstruction, GERD, *RENAL/*, *PSYCH*, Anxiety Past Surgical History: abdominal surgery, , orthopedic surgeries, tonsillectomy, other Other Past Surgical History: ovarian cyst removal Other Past Family History: NONCONTRIBUTORY Alcohol Use: None Drug Use: none Lives with: Family Lives In: Home Occupation: employed Review of Systems ROS All review of systems negative except as per HPI Physical Exam Vital Signs: Temperature: 97.6, Source: Temporal, Heart Rate: 70, Respiratory Rate: 18, BP: 156/84, Pulse Oximetry: 99, Weight: 104.750 Physical Exam General: Patient is awake, alert, oriented x4 in no acute distress Head: Normocephalic and atraumatic. Eyes: Conjunctival normal. EOMI. PERRL. ENT: Mucous membranes moist. Neck: Supple, trachea is midline. Chest: Clear to auscultation bilaterally without rales, rhonchi, or wheezes. There is no accessory muscle use or retractions. Cardiac: RRR without murmurs, gallops, or rubs. Abd: Soft, nondistended, nontender, epigastric tenderness to palpation without rebound tenderness Progress Results/Orders Results/Orders Vital Signs 09/14/24 18:06 Temp 97.6 Pulse 70 Resp 18 B/P (MAP) 156/84 Pulse Ox 99 Medical Decision Making Findings MSE performed in triage and patient returned to ED lobby by nursing staff and return to the ED lobby waiting a and available Patient presents to the emergency room for evaluation of abdominal pain as per HPI. Differentials include but are not limited to cholecystitis gastritis pancreatitis diverticulitis small-bowel obstruction ovarian pathology therefore emergent labs and imaging indicated. Patient's main pain is epigastric in nature therefore I do not feel patient requires ultrasound of her ovaries. Ultrasound of the gallbladder was reassuring as was CT scan and labs. Patient is feeling better and upon re-evaluation she sleeping comfortably. Unknown cause for patient's abdominal pain. There was an abnormality seen in ovarian area on CT scan however she has extensive history ovarian cysts and adhesions and I believe it is related to this I do not feel she is suffering from ovarian torsion. Departure Disposition: HOME / SELF CARE / HOMELESS Impression: Primary Impression: Abdominal pain Condition: Improved Discharge Instructions: Abdominal Pain (Nonspecific) Referrals: NO PRIMARY CARE PROVIDER (PCP) Prescriptions Prochlorperazine Maleate (Compazine) 10 Mg Tablet 1 TAB PO Q6H for 7 Days, #28 TAB 0 Refills Prov: ADDY RIVERA MD 09/15/24 Dicyclomine Hcl* (Bentyl*) 10 Mg Capsule 1 CAP PO Q6H PRN PRN for irritable bowel symptoms for 25 Days, #100 CAP Prov: ADDY RIVERA MD 09/15/24 Education Educated: Patient Educated regarding: diagnosis, need for follow up Signature Scribe Signature: No scribe Attestation: The note accurately reflects work and decisions made by me.Addy Rivera MD 09/15/24 00:43 SAMMY APARICIO September 14, 2024 18:26 ADDY RIVERA MD September 14, 2024 20:08
[2024-09-14 19:21] LABS: BASOPHILS # (AUTO) 0.1 X10'3 (0-0.2); BASOPHILS % (AUTO) 0.9 % (0-1); EOSINOPHILS # (AUTO) 0.2 X10'3 (0-0.9); EOSINOPHILS % (AUTO) 2.4 % (0-6); HEMATOCRIT 40.4 % (35.0-45.0); HEMOGLOBIN 13.8 g/dl (12.0-16.0); LYMPHOCYTES # (AUTO) 2.7 X10'3 (1.1-4.8); LYMPHOCYTES % (AUTO) 36.4 % (21-51); MEAN CORPUSCULAR HEMOGLOBIN 29.6 PG (27.0-31.0); MEAN CORPUSCULAR HGB CONC 34.3 g/dL (33.0-36.5); MEAN CORPUSCULAR VOLUME 86.3 FL (78-98); MEAN PLATELET VOLUME 7.9 FL (7.4-10.4); MONOCYTES # (AUTO) 0.6 X10'3 (0-0.9); MONOCYTES % (AUTO) 8.3 % (2-12); NEUTROPHILS # (AUTO) 3.9 X10'3 (1.8-7.7); PLATELET COUNT 314 X10'3 (140-440); RED BLOOD COUNT 4.68 X10'6 (4.20-5.60); RED CELL DISTRIBUTION WIDTH 14.1 % (11.5-14.5); WHITE BLOOD COUNT 7.4 X10'3 (4.5-11.0)
[2024-09-14 19:35] LABS: ALANINE AMINOTRANSFERASE 26 U/L (12-78); ALBUMIN 3.8 G/DL (3.4-5.0); ALKALINE PHOSPHATASE 84 IU/L (46-116); ANION GAP 5 (8-16); ASPARTATE AMINO TRANSFERASE 24 U/L (10-37); BILIRUBIN,TOTAL 0.3 MG/DL (0.1-1.0); BLOOD UREA NITROGEN 12 MG/DL (7-18); BUN/CREATININE RATIO 11.1 (10.0-20.0); CALCIUM 8.8 MG/DL (8.5-10.1); CHLORIDE 105 MMOL/L (99-107); CREATININE 1.08 MG/DL (0.40-0.90); GLUCOSE 93 MG/DL (70-104); LIPASE 37 U/L (16-77); POTASSIUM 3.7 MMOL/L (3.5-5.1); SODIUM 141 MMOL/L (135-145); TOTAL PROTEIN 7.5 G/DL (6.4-8.2); eCRCL 59 ML/MIN; eGFR 55 ML/MIN
[2024-09-14 19:40] LABS: URINE HCG NEGATIVE (NEG)
[2024-09-14 19:41] LABS: BILIRUBIN,URINE NEGATIVE (Neg); CLARITY,URINE CLEAR (Clear); COLOR,URINE YELLOW (Yellow); GLUCOSE, URINE NEGATIVE (Neg); KETONES,URINE NEGATIVE (Neg); LEUKOCYTE ESTERASE ,URINE NEGATIVE (Neg); NITRITES, URINE NEGATIVE (Neg); OCCULT BLOOD,URINE SMALL (Neg); PROTEIN,URINE NEGATIVE (Neg); UROBILINOGEN,URINE 0.2 E.U/dL (0.2-1.0)
[2024-09-14 19:49] LABS: UA COLLECTION TYPE CLN CATCH MIDSTREAM
[2024-09-14 19:51] LABS: BACTERIA,URINE FEW /HPF (Neg); HYALINE CASTS 0-3 /LPF (NEGATIVE); SQUAMOUS EPITHELIAL CELL,UR FEW /LPF (FEW); WBC,URINE 0-4 /HPF (0-4)
[2024-09-14] MEDS ORDERED: pantoprazole 40MG/NS 100ML BAG 100 ML IV SCH (23:05)
[2024-09-14] MEDS ORDERED: octreotide inj. 500 MCG in normal saline 100ml IV soln 97.5 ML IV ONE (23:05)
--- NOTE | 2024-09-14 23:30 | RADIOLOGY REPORT ---
Clinical History epigastric pain Comparison None Technique: Real-time evaluation of the right upper quadrant abdomen was performed. Without Contrast ASHELY EVERETT, [id number] FINDINGS: The liver measures 17.7 cm in length. The liver is decrease in echotexture. Left lobe liver cyst me asuring 1.5 x 1.7 x 1.7 cm is identified. There no intrahepatic biliary ductal dilatation. There is no evidence of gallstones. Gallbladder wall is 1.8 mm. There is no sonographic Moran's si gn. The common bile duct measures 3.2 mm in diameter. . The right kidney is 10.5 cm in length. The right kidney is unremarkable in size and echogenicity. Th ere is no evidence of hydronephrosis and no perinephric fluid collections are identified. The visualized portions of the pancreas are unremarkable. There is no ascites. IMPRESSION: Fatty liver infiltration. Left lobe liver cyst. This report was electronically signed by Figueroa Wynn MD on 09/14/2024 11:27:28 PM.
--- NOTE | 2024-09-14 23:46 | RADIOLOGY REPORT ---
Clinical History abd pain Comparison CT ABD/PEL on 12/18/2017, 400 images. Technique: All CT scans at this medical facility are performed using dose modulation techniques as appropriate t o a performed exam including the following: Automated exposure control was utilized; adjustment of th e mA and/or kV according to patient size; and use of iterative reconstruction technique. All CT studies are reported to the Dose Index Registry of the [employer]. Without Contrast Radiation Dose: CTDI (mGy): 32.29; DLP (mGy-cm): 1849.05 ASHELY EVERETT, [id number] FINDINGS: LUNG BASES: Unremarkable LIVER: Interval development of one centimeter hepatic cyst. GALLBLADDER: Unremarkable PANCREAS: Unremarkable SPLEEN: Unremarkable ADRENAL GLANDS: Unremarkable KIDNEYS: Unremarkable AORTA: Unremarkable INFERIOR VENA CAVA: Unremarkable LYMPH NODES: Unremarkable STOMACH: Unremarkable SMALL INTESTINE: Unremarkable APPENDIX: Normal caliber. COLON: Diverticulosis of sigmoid colon. BLADDER: Unremarkable RECTUM: Unremarkable SKELETAL: Unremarkable SUPERFICIAL SOFT TISSUES: Unremarkable OTHER: Heterogeneous hypodense lesion within the lower uterine segment measuring 2.1 x 2.5 cm.. IMPRESSION: Hypodense lesion at the lower region segment of indeterminate significance. Correlation with pelvic ultrasound may be helpful for further evaluation. 1 cm hepatic cyst is new since prior examination. This report was electronically signed by Figueroa Wynn MD on 09/14/2024 11:42:54 PM.
[2024-09-15] MEDS ORDERED: DICY10CA88 PO (00:43)
[2024-09-15 00:56] VITALS: BP 168/87; PULSE 68; RESP 14; TEMP 97.6; O2SAT 100
--- NOTE | 2024-09-15 07:04 | ELECTROCARDIOGRAPH REPORT ---
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
== END 2024-09-15 00:57 | disposition home or self-care (01) ==
LOC: ER 17:55
DX: R10.84 Generalized abdominal pain (principal); K21.9 Gastro-esophageal reflux disease without esophagitis; Z88.0 Allergy status to penicillin; Z88.1 Allergy status to other antibiotic agents; Z88.2 Allergy status to sulfonamides; Z88.5 Allergy status to narcotic agent; Z88.8 Allergy status to other drugs, medicaments and biological substances; Z90.89 Acquired absence of other organs; Z98.890 Other specified postprocedural states
CPT/HCPCS: 36415; 74176; 76700; 80053; 81001; 81025; 83690; 85025; 93005; 99285

== ENCOUNTER 2024-12-31 14:59 | Outpatient (CLI) | payer MEDICARE, MEDICAID ==
[2024-12-31 16:08] LABS: MEAN PLATELET VOLUME 8.0 FL (7.4-10.4); RED CELL DISTRIBUTION WIDTH 13.8 % (11.5-14.5)
[2024-12-31 16:26] LABS: CREATININE 1.11 MG/DL (0.40-0.90); TOTAL CARBON DIOXIDE 28.2 MMOL/L (24-32); eGFR 53 ML/MIN
[2025-01-05 05:12] LABS: VITAMIN D, 25-HYDROXY 30.8 ng/mL (30.0-100.0)
== END 2024-12-31 23:59 | disposition home or self-care (01) ==
LOC: LAB 14:59
PROVIDERS: ATTEND Psychiatry & Neurology Neurology
DX: E78.5 Hyperlipidemia, unspecified (principal); D64.9 Anemia, unspecified; K71.9 Toxic liver disease, unspecified; M81.0 Age-related osteoporosis without current pathological fracture; G62.9 Polyneuropathy, unspecified
CPT/HCPCS: 36415; 80053; 82306; 82465; 82607; 85025